=== PATIENT | male | born 1995 | race Caucasian/White ===

== ENCOUNTER 2017-08-05 08:00 | Outpatient (CLI) | payer BC, MEDICAID ==
[2017-08-05 18:07] LABS: BASOPHILS # (AUTO) 0.1 10^3/uL (0.0-0.1); EOSINOPHILS # (AUTO) 0.1 10^3/uL (0.0-0.7); EOSINOPHILS % (AUTO) 1.9 %; HCT - HEMATOCRIT 46.4 % (42.0-52.0); HGB - HEMOGLOBIN 15.7 g/dL (14.0-18.0); LYMPHOCYTES # (AUTO) 2.7 10^3/uL (1.5-3.5); LYMPHOCYTES % (AUTO) 39.3 %; MEAN CORPUSCULAR HGB CONC 33.9 g/dL (32.0-36.0); MEAN CORPUSCULAR VOLUME 91.6 fL (80.0-94.0); MONOCYTES # (AUTO) 0.5 10^3/uL (0.0-1.0); MONOCYTES % (AUTO) 7.6 %; NEUTROPHILS # (AUTO) 3.4 10^3/uL (1.5-6.6); NEUTROPHILS % (AUTO) 50.2 %; RED BLOOD COUNT 5.07 10^6/uL (4.70-6.10); RED CELL DISTRIBUTION WIDTH 13.2 % (12.0-15.0); UNCORRECTED WHITE BLOOD COUNT 6.9 x10^3/uL; WHITE BLOOD COUNT 6.9 x10^3/uL (4.8-10.8)
[2017-08-05 18:19] LABS: CHOL/HDL RATIO 5.4 (<5.0); CHOLESTEROL 274 mg/dL; HDL CHOLESTEROL 51 mg/dL; LDL/HDL RATIO 3.5 (<3.6); TRIGLYCERIDES 214 mg/dL; VLDL CHOLESTEROL 43 mg/dL
[2017-08-05 18:25] LABS: HEMOGLOBIN A1C 0.5 g/dL
[2017-08-05 18:31] LABS: THYROID STIMULATING HORMONE 2.66 uIU/mL (0.34-5.60)
== END 2017-08-05 08:01 ==
LOC: LAB.R 08:00
PROVIDERS: ATTEND Pediatrics
DX: Q90.9 Down syndrome, unspecified (principal)
CPT/HCPCS: 80061; 82306; 83036; 83516; 84439; 84443; 85025

== ENCOUNTER 2019-05-09 02:05 | Outpatient (CLI) | payer MEDICAID | END 2019-05-09 02:06 | disposition EMS.NT | LOC: EMS 02:05 | PROVIDERS: ATTEND Surgery | DX: J02.9 Acute pharyngitis, unspecified (principal) ==

== ENCOUNTER 2023-06-07 11:07 | Outpatient (CLI) | payer MEDICAID | END 2023-06-07 23:59 | disposition left against medical advice (07) | LOC: EMS 11:07 | DX: R55 Syncope and collapse (principal); R11.0 Nausea; R42 Dizziness and giddiness; R51.9 Headache, unspecified; R53.1 Weakness ==